=== PATIENT | male | born 1985 ===

== ENCOUNTER 2019-05-27 13:35 | Emergency (ER) | payer OTHER ==
[2019-05-27 14:21] VITALS: BP 104/41
--- NOTE | 2019-05-27 14:56 | UC ---
Lower Extremity/Ankle HPI - HPI Summary HPI Summary: 33 yo male with MR injured right ankle on or about 05/14 since then has done only minimal wt bearing has persistent lateral ankle and foot edema since them - History of Current Complaint Chief Complaint: UCLowerExtremity Stated Complaint: RIGHT LEG COMPLAINT Time Seen by Provider: 05/27/19 14:20 Hx Obtained From: Patient Onset/Duration: Sudden Onset Severity Initially: Moderate Severity Currently: Mild Pain Intensity: 0 Pain Scale Used: 0-10 Numeric Aggravating Factor(s): Standing, Ambulation Alleviating Factor(s): Rest Able to Bear Weight: No Feet (Multiple View): 1 - tender/swollen - Allergies/Home Medications Allergies/Adverse Reactions: Allergies Allergy/AdvReac Type Severity Reaction Status Date / Time No Known Allergies Allergy Verified 05/27/19 14:04 Home Medications: Home Medications Acetaminophen [Tylenol Extra Strength] 1,000 mg PO Q4HR PRN 05/27/19 [History Confirmed 05/27/19] PMH/Surg Hx/FS Hx/Imm Hx Previously Healthy: Yes Neurological History: Seizures - Surgical History Surgery Procedure, Year, and Place: T & A - Family History Known Family History: Positive: Non-Contributory - Social History Alcohol Use: None Substance Use Type: None Smoking Status (MU): Never Smoked Tobacco Review of Systems All Other Systems Reviewed And Are Negative: Yes Constitutional: Positive: Negative Skin: Positive: Negative Eyes: Positive: Negative ENT: Positive: Negative Respiratory: Positive: Negative Cardiovascular: Positive: Negative Gastrointestinal: Positive: Negative Genitourinary: Positive: Negative Motor: Positive: Negative Neurovascular: Positive: Negative Musculoskeletal: Positive: Arthralgia - Right ankle Neurological: Positive: Negative Psychological: Positive: Negative Physical Exam Triage Information Reviewed: Yes Appearance: Well-Appearing, No Pain Distress, Well-Nourished Vital Signs: Initial Vital Signs Temp 97.5 F 05/27/19 14:06 Pulse 76 05/27/19 14:06 Resp 22 05/27/19 14:06 BP 104/41 05/27/19 14:06 Pulse Ox 100 05/27/19 14:06 Vital Signs Reviewed: Yes Eyes: Positive: Conjunctiva Clear ENT: Negative: Nasal congestion, Nasal drainage, Trismus, Muffled voice, Hoarse voice Neck: Positive: Supple, Nontender, No Lymphadenopathy Respiratory: Positive: Lungs clear, Normal breath sounds, No respiratory distress, No accessory muscle use Cardiovascular: Positive: RRR, No Murmur Musculoskeletal: Positive: Edema @ - see image Neurological: Positive: Alert Psychological Exam: Other - no vocal Skin Exam: Normal Diagnostics - Radiology No standard instances Radiology Interpretation Completed By: Radiologist Summary of Radiographic Findings: OBLIQUE NONDISPLACED INTRA-ARTICULAR FRACTURE OF THE DISTAL FIBULA. Lower Extremity Course/Dx - Differential Dx/Diagnosis Provider Diagnosis: Nondisplaced oblique fracture of shaft of right fibula Discharge - Sign-Out/Discharge Documenting (check all that apply): Patient Departure All imaging exams completed and their final reports reviewed: Yes - Discharge Plan Condition: Improved Disposition: HOME Patient Education Materials: Ankle Fracture (ED) Referrals: Dagoberto Gonzales MD [Medical Doctor] - As Soon As Possible Additional Instructions: CAM boot Call orthopedist and make an appt continue to use wheel chair may briefly bear wt when changing positions but should not ambulate until cleared by orthopedist - Billing Disposition and Condition Condition: IMPROVED Disposition: Home
== END 2019-05-27 15:16 | disposition home or self-care (01) ==
LOC: UCCORT 13:35
DX: S82.434A Nondisplaced oblique fracture of shaft of right fibula, initial encounter for closed fracture (principal); X58.XXXA Exposure to other specified factors, initial encounter; Y92.9 Unspecified place or not applicable
CPT/HCPCS: 99202; G0463